=== PATIENT | male | born 1990 | race Caucasian/White ===

== ENCOUNTER 2019-04-26 19:29 | Emergency (ER) | payer BC, SELFPAY ==
[2019-04-26 19:44] VITALS: BP 131/76; PULSE 80; RESP 18; TEMP 36.7; O2SAT 99
--- NOTE | 2019-04-26 20:05 | ED_ITS ---
HPI - Skin/Abscess/Foreign Bdy General: Chief complaint: Skin/Abscess/Foreign Body Stated complaint: POISON TASIA Time Seen by Provider: 04/26/19 19:54 Source: patient Mode of arrival: ambulatory Limitations: no limitations History of Present Illness: HPI narrative: Patient was exposed to poison tasia on and Friday while [place] the city. Patient noticed rash starting on Friday to his lower abdomen and groin. Patient now has areas spreading on his neck and face. Patient appears well. Patient appears in no acute distress. Patient reports no previous episodes of poison tasia. Review of Systems General: Reports: 10 or more systems reviewed and unremarkable except in HPI and below Skin/Breast: Reports: rash and itching Physical Exam Const: COMMON NORMALS: no apparent distress and oriented x3 GENERAL APPEARANCE: cooperative HENMT: COMMON NORMALS: normocephalic, external ears normal, EAC's normal, TM's normal bilaterally and external nose normal HEAD & SCALP: normal to inspection and normocephalic FACE & SINUS: normal facial exam NOSE: external nose normal GENERAL EAR: hearing not grossly impaired EXTERNAL EAR: Yes external ears normal EXTERNAL AUDITORY CANAL: EAC's normal TYMPANIC MEMBRANE: TM's normal bilaterally MOUTH: oral and palatal mucosa normal THROAT: posterior oropharynx normal Eye: COMMON NORMALS: PERRL and EOMs intact bilaterally PUPIL: Yes PERRL Neck/C-Spine: COMMON NORMALS: full ROM and no lymphadenopathy Lymph: LYMPHATIC: no lymphedema noted Chest: COMMONS NORMALS: inspection of chest normal and palpation of chest normal Resp: COMMON NORMALS: normal respiratory effort and clear to auscultation bilaterally AUSCULTATION: clear to auscultation bilaterally Cardio: COMMON NORMALS: regular rate and regular rhythm RATE: regular rate RHYTHM: regular rhythm GI: COMMON NORMALS: normal to inspection, nondistended, normoactive bowel sounds and non-tender : COMMON NORMALS: Yes no CVA tenderness BLADDER/KIDNEY EXAM: Yes no CVA tenderness Back/Pelvis: COMMON NORMALS: no CVA tenderness and thoracic and lumbar spine normal to inspection Extremity: COMMON NORMALS: normal to inspection GENERAL: No edema Neuro: COMMON NORMALS: oriented x3, moves all extremities and no focal motor deficits Psych: COMMON NORMALS: mental status grossly normal and cooperative Skin: RASHES: rashes noted (patchy elevated rash to neck, groin, and lower abd) Course Vital Signs: Vital signs: Vital Signs Temperature 98.1 F 04/26/19 19:44 Pulse Rate 80 04/26/19 19:44 Respiratory Rate 18 04/26/19 19:44 Blood Pressure 131/76 04/26/19 19:44 Pulse Oximetry 99 04/26/19 19:44 MDM - Skin/Abscess/Foreign Bdy MDM Narrative: Medical decision making narrative: Patient comes in today for complaints of rash and itching. On exam have a patchy rash to the neck face and lower abdomen and groin area. Rashes elevated maculopapular type lesions in various patches. Differential diagnosis includes contact dermatitis, poison iv y, eczema. Reviewed exam recommended treatment for poison tasia. Patient was given 1 dose of Decadron and recommended to continue with calamine lotion and Benadryl. Patient and family both report understanding agreed to plan. Discharge Plan Discharge Patient Disposition: Home, Self-Care Condition: Stable Prescriptions: No Action No Known Home Medications RF: 0 Discharge Orders: Discharge Order (Routine); Ordered 04/26/19 Ordered By: Arsenio Ba Discharge Diet: Usual diet Discharge Activity: Resume usual activity Patient Instructions: Poison Tasia (ED) Activity Restrictions/Additional Instructions: Avoid over drying the skin Use, hydrocortisone cream, calamine, and benadryl as discussed. You may use Claritin or Zyrtec instead of Benadryl if it makes you to drowsy Drink plenty of water with medications Follow-up with primary care as needed for further treatment Coding Level of Care Code ED Sole Stapler Welt for [address] Exam Problem Focused
[2019-04-26] MEDS: dexamethasone 10 mg/mL INJ IM (20:34)
== END 2019-04-26 21:08 | disposition home or self-care (01) ==
LOC: ER 20:42
PROVIDERS: Emergency Provider Nurse Practitioner Family
DX: L23.7 Allergic contact dermatitis due to plants, except food (principal)
CPT/HCPCS: 96372; 99281; J1100

== ENCOUNTER 2021-03-06 00:15 | Emergency (ER) | payer BC, SELFPAY ==
--- NOTE | 2021-03-06 00:20 | ED_ITS ---
HPI - Back Pain/Injury General: Chief Complaint: Back Pain/Injury Stated Complaint: lower back pain Time Seen by Provider: 03/06/21 00:19 History of Present Illness: HPI Narrative: 31-year-old male patient comes in today with complaints of left flank pain. Patient reports pain starting this evening about 4 hours ago. Patient has taken 2 [place]'s, 1 dose of ondansetron, and 1 tamsulosin with no significant relief. Patient does have a history of kidney stone with the last one being in 2018. Patient appears in moderate to severe pain. Patient appears mildly unwell but not toxic. Review of Systems General: Reports: 10 or more systems reviewed and unremarkable except in HPI and below : Reports: flank pain Physical Exam Const: COMMON NORMALS: no acute distress and patient oriented x3 GENERAL APPEARANCE: cooperative HENMT: COMMON NORMALS: normocephalic HEAD & SCALP: normal to inspection and normocephalic MOUTH: Normal oral and palatal mucosa present Eye: GENERAL EYE: appearance normal, both eyes and all related structures Neck/C-Spine: COMMON NORMALS: full ROM Chest: COMMONS NORMALS: normal inspection of the chest Resp: COMMON NORMALS: normal respiratory effort EFFORT & INSPECTION: Yes able to speak in complete sentences Cardio: COMMON NORMALS: regular rate and regular rhythm RATE: regular rate RHYTHM: regular rhythm GI: COMMON NORMALS: non-tender : BLADDER/KIDNEY EXAM: Yes CVA tenderness (mild) on the left Back/Pelvis: COMMON NORMALS: thoracic and lumbar spine normal to inspection GENERAL BACK: Yes CVA tenderness (mild) Extremity: COMMON NORMALS: normal to inspection Neuro: COMMON NORMALS: patient oriented x3 and moves all extremities Psych: COMMON NORMALS: mental status grossly normal and cooperative Skin: COMMON NORMALS: no rashes or lesions noted GENERAL SKIN EXAM: no rashes or lesions noted Course Vital Signs: Vital signs: Vital Signs Temperature 97.6 F 03/06/21 00:22 Pulse Rate 77 03/06/21 00:22 Respiratory Rate 18 03/06/21 00:22 Blood Pressure 123/68 03/06/21 00:22 Pulse Oximetry 98 03/06/21 00:22 MDM - Back Pain/Injury MDM Narrative: Medical decision making narrative: Patient comes in today with complaints of left flank pain radiating into the groin. Patient has a history of renal calculi. On exam patient has some mild tenderness on percussion of the left CVA. Vital signs are normal. Abdomen soft nontender. Differential diagnosis includes pyelonephritis, urinary tract infection, renal calculi. Urine showed large amount of white blood cells. CBC and CMP were unremarkable. CT showed a distal ureter stone in the left side. Patient was given morphine with good control of pain. Patient will be continued on hydrocodone, ondansetron, and tamsulosin for further treatment. Case management was requested to assist patient with follow-up with Dr. Dodd. Patient was instructed to monitor for fever and return to the ER for uncontrolled pain or high fever. Patient reported understanding and agreed to plan. Lab Data: Labs: Lab Results 03/06/21 03/06/21 03/06/21 00:25 00:25 01:15 WBC 8.8 10^3/uL 10^3/ uL (4.0-10.0) RBC 5.07 10^6/uL 10^6 /uL (4.1-5.3) Hgb 14.9 g/dL g/dL (11.7-16.6) Hct 42.1 % % (42.0-52.0) MCV 83.0 fl fl (80-94) MCH 29.4 pg pg (28.0-34.0) MCHC 35.4 g/dL g/dL (30.0-36.0) RDW 12.7 % % (12.1-15.1) Plt Count 289 10^3/cmm 10^3 /cmm (130-400) MPV 9.5 fL fL (7.4-10.4) Neut % (Auto) 49.9 % % Lymph % (Auto) 37.5 % % [facility] % (Auto) 8.4 % % Eos % (Auto) 3.5 % % Baso % (Auto) 0.5 % % Neut # (Auto) 4.38 10^3/uL 10^3 /uL (1.8-7.7) Lymph # (Auto) 3.3 10^3/uL 10^3/ uL (0.8-4.8) [facility] # (Auto) 0.7 10^3/uL 10^3/ uL (0.2-0.9) Eos # (Auto) 0.3 10^3/uL 10^3/ uL (0.0-0.8) Baso # (Auto) 0.0 10^3/uL 10^3/ uL (0.0-0.1) Nucleated RBC % (a uto) 0 % % Nucleated RBCs # 0.0 /100WBC /100W BC Sodium 140 mmol/L mmol/L (136-145) Potassium 3.8 mmol/L mmol/L (3.5-5.1) Chloride 102 mmol/L mmol/L (98-107) Carbon Dioxide 25 mmol/L mmol/L (22-29) Anion Gap 16.8 (5-19) BUN 18 mg/dL mg/dL (6-20) Creatinine 1.2 mg/dL mg/dL (0.7-1.2) GFR Calculation 69.7 mL/min L mL/ min (90-130) Glucose 101 mg/dL mg/dL (65-115) Calculated Osmolal ity 292 mOsm/kg mOsm/ kg (285-295) Calcium 9.3 mg/dL mg/dL (8.5-10.5) Total Bilirubin 0.6 mg/dL mg/dL (0.15-1.2) AST 17 U/L U/L (0-40) ALT 22 U/L U/L (0-41) Alkaline Phosphata se 41 IU/L IU/L (40-130) Total Protein 7.9 g/dL g/dL (6.6-8.7) Albumin 4.7 g/dL g/dL (3.5-5.2) Globulin 3.2 g/dL g/dL (1.3-4.6) Urine Color Dark yellow (Yellow) Urine Appearance Hazy A (CLEAR) Urine pH 5 (5-7) Ur Specific Gravit y 1.020 (1.005-1.030) Urine Protein Neg (Negative) Urine Glucose (UA) Norm (Normal) Urine Ketones Negative (Negative) Urine Blood 3+ H (Negative) Urine Nitrate Negative (Negative) Urine Bilirubin Neg (Negative) Urine Urobilinogen Neg mg/dL mg/dL (Negative) Ur Leukocyte Selina ase Negative (Negative) Urine RBC >100 /hpf H /hpf (0-2) Urine WBC 0-4 /hpf H /hpf (0-5) Ur Squamous Epith Cells 0-4 /hpf H /hpf (0-5) Amorphous Sediment Not Reportable Urine Bacteria None /hpf /hpf (NONE) Discharge Plan Discharge Patient Disposition: Home Clinical Impression: Left ureteral calculus Condition: Stable Prescriptions: New hydrocodone-acetaminophen 5-325 mg tablet 1 tab PO Q6H PRN (Reason: pain (scale score 7-10)) Qty: 14 RF: 0 ondansetron 4 mg tablet,disintegrating 4 mg PO Q8H PRN (Reason: nausea and vomiting) Qty: 10 RF: 0 tamsulosin 0.4 mg capsule 0.4 mg PO DAILY Qty: 10 RF: 0 Discharge Orders: Discharge ED (Routine); Ordered 03/06/21 Ordered By: Arsenio Ba Discharge Diet: Usual diet Patient Instructions: Kidney Stones (ED), Opioid Safety Activity Restrictions/Additional Instructions: Home and rest. Activity as tolerated. Continue with routine medications as directed. Use prescriptions as prescribed. You will need to follow-up with urologist for further treatment. Monitor for high fever greater than 100.4 or uncontrolled pain. If any of these symptoms return to the ER. Case management should contact you for the follow-up appointment with Dr. Dodd. 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
[2021-03-06 00:22] VITALS: BP 123/68; PULSE 77; RESP 18; TEMP 36.4; O2SAT 98; BMI 31.1
--- NOTE | 2021-03-06 00:25 | CTR_ITS ---
PROCEDURE INFORMATION: Exam: CT Abdomen And Pelvis Without Contrast Exam date and time: 03/06/2021 12:25 AM Age: 31 years old Clinical indication: Abdominal pain; Flank; Left; Additional info: Left flank pain, renal stone TECHNIQUE: Imaging protocol: Computed tomography of the abdomen and pelvis without contrast. Radiation optimization: All CT scans at this facility use at least one of these dose optimization techniques: automated exposure control; mA and/or kV adjustment per patient size (includes targeted exams where dose is matched to clinical indication); or iterative reconstruction. COMPARISON: CT Abdomen/Pelvis Renal [id number] 03/05/2018 10:00 AM RADIATION DOSE METRICS: Total DLP (mGy-cm): 1928.8 FINDINGS: Liver: Normal. No mass. Gallbladder and bile ducts: Normal. No calcified stones. No ductal dilation. Pancreas: Normal. No ductal dilation. Spleen: Normal. No splenomegaly. Adrenal glands: Normal. No mass. Kidneys and ureters: 5 mm calcified stone in the distal left ureter just proximal to the UVJ. Mild severity left collecting system hydroureteronephrosis. Stomach and bowel: Unremarkable. No obstruction. No mucosal thickening. Appendix: No evidence of appendicitis. Intraperitoneal space: Unremarkable. No free air. No significant fluid collection. Vasculature: Unremarkable. No abdominal aortic aneurysm. Lymph nodes: Unremarkable. No enlarged lymph nodes. Urinary bladder: Unremarkable as visualized. Reproductive: Unremarkable as visualized. Bones/joints: Unremarkable. No acute fracture. Soft tissues: Unremarkable. CT/CT kidney stone [id number] IMPRESSION: Left side distal ureterolithiasis with obstructive uropathy changes. Radiation Dose CTDIVOL = (mGy): DLP = 1928.8 (mGy-cm)
[2021-03-06] MEDS: ondansetron 2 mg/ML SDV 2 mL 4 MG IVP (00:34)
[2021-03-06] MEDS: ketorolac 30 mg/mL INJ 15 MG IVP (00:34)
[2021-03-06] MEDS: morphine 4 mg/mL SDV 1 mL IVP ×2 (00:34→01:55)
[2021-03-06 00:54] LABS: Basophils % 0.5 %; Eosinophils # 0.3 10^3/uL (0.0-0.8); Eosinophils % 3.5 %; Hematocrit 42.1 % (42.0-52.0); Hemoglobin 14.9 g/dL (11.7-16.6); Lymphocytes # 3.3 10^3/uL (0.8-4.8); Lymphocytes % 37.5 %; Mean Corpuscular HGB Conc 35.4 g/dL (30.0-36.0); Mean Corpuscular Hemoglobin 29.4 pg (28.0-34.0); Mean Platelet Volume 9.5 fL (7.4-10.4); Monocytes # 0.7 10^3/uL (0.2-0.9); Monocytes % 8.4 %; Neutrophils # 4.38 10^3/uL (1.8-7.7); Neutrophils % 49.9 %; Nucleated Red Blood Cells % 0 %; Platelet Count 289 10^3/cmm (130-400); Red Blood Count 5.07 10^6/uL (4.1-5.3); Red Cell Distribution Width 12.7 % (12.1-15.1); White Blood Count 8.8 10^3/uL (4.0-10.0)
[2021-03-06 01:09] LABS: Alanine Aminotransferase 22 U/L (0-41); Albumin Level 4.7 g/dL (3.5-5.2); Alkaline Phosphatase 41 IU/L (40-130); Anion Gap 16.8 (5-19); Aspartate Amino Transferase 17 U/L (0-40); Blood Urea Nitrogen 18 mg/dL (6-20); Calcium 9.3 mg/dL (8.5-10.5); Carbon Dioxide 25 mmol/L (22-29); Chloride 102 mmol/L (98-107); Globulin 3.2 g/dL (1.3-4.6); Glomerular Filtration Rate 69.7 mL/min (90-130); Glucose 101 mg/dL (65-115); Osmolality Calculated 292 mOsm/kg (285-295); Potassium 3.8 mmol/L (3.5-5.1); Sodium 140 mmol/L (136-145); Total Bilirubin 0.6 mg/dL (0.15-1.2); Total Protein 7.9 g/dL (6.6-8.7)
[2021-03-06] MEDS: sodium chloride 0.9% 500 ML 999 ML IV (01:13)
[2021-03-06 01:45] LABS: Add Urine Microscopic? YES; Bilirubin Urine Neg (Negative); Blood Urine 3+ (Negative); Glucose Urine UA Norm (Normal); Ketones Urine Negative (Negative); Leukocyte Esterase Urine Negative (Negative); Nitrate Urine Negative (Negative); Protein Urine Neg (Negative); Urine Appearance Hazy (CLEAR); Urine Color Dark Yellow (Yellow); Urobilinogen Urine Neg (Negative); pH Urine 5 (5-7)
[2021-03-06 01:46] LABS: Add Urine Culture? Yes; RBC Urine >100 /hpf (0-2); Squamous Epithelial Cell Urine 0-4 /hpf (0-5); WBC Urine 0-4 /hpf (0-5)
[2021-03-06 01:59] VITALS: BP 117/57; PULSE 63; RESP 16; O2SAT 98
--- NOTE | 2021-03-06 11:46 | DCPLANNER ---
solutions manager had message to schedule a follow up for patient with Dr. Dodd. solutions manager emailed patients information to Simone Douglas and Yancy in the office of Dr. Dodd. Patients information will be printed and reviewed. Clinic will call patient with appointment information.
--- NOTE | 2021-03-07 08:09 | DCPLANNER ---
Patient has a follow up appointment scheduled for Friday, March 07, 2021 at 3:[address] Dodd. Clinic will call patient with appointment information.
--- NOTE | 2021-04-04 14:31 | DCPLANNER ---
Patient had a follow up appointment scheduled for 03.07.[address] Dodd - patient did attend appointment.
== END 2021-03-06 02:08 | disposition home or self-care (01) ==
PROVIDERS: Emergency Provider Nurse Practitioner Family
DX: N20.1 Calculus of ureter (principal)
CPT/HCPCS: 74176; 80053; 81001; 85025; 87086; 96374; 96375; 96376; 99284; J1885; J2270; J2405; J7040

== ENCOUNTER 2021-03-07 13:47 | Outpatient (CLI) | payer BC, SELFPAY ==
--- NOTE | 2021-03-07 13:59 | XR_ITS ---
WS: [id number] KUB, AP view, 03/07/2021 Clinical Data: URETERAL CALCULUS Comparison: KUB, 03/06/2018. Findings: No abnormal intraabdominal masses or calcifications are seen. There is no dilatated small bowel or ev idence of obstruction. There is a small calcification in the region of the left ureterovesical junction. XR/XR KUB [id number] Impression: Left UVJ calcification.
== END 2021-03-07 13:48 | disposition home or self-care (01) ==
LOC: RAD 13:49
PROVIDERS: PCP Nurse Practitioner Adult Health; Visit Provider Urology
DX: N20.1 Calculus of ureter (principal)
CPT/HCPCS: 74018

== ENCOUNTER 2021-03-14 07:13 | Outpatient (CLI) | payer BC, SELFPAY ==
--- NOTE | 2021-03-14 07:00 | XR_ITS ---
WS: [id number] Exam: XR KUB [id number] Date/Time of Exam: 03/14/2021 7:22 AM Reason For Exam: ureteral calculus Comparison 03/07/2021. Previously noted left pelvic calcification not definitely seen on today's study. No calcifications se en over the region of the kidneys. No bowel obstruction or free air. No sign of organ enlargement. Re gional bony structures appear normal. XR/XR KUB [id number] IMPRESSION: 1. No acute abdominal finding. 2. Previously noted small left pelvic calcification is difficult to identify on today's exam.
== END 2021-03-14 07:14 | disposition home or self-care (01) ==
PROVIDERS: PCP Nurse Practitioner Adult Health; Visit Provider Urology
DX: N20.1 Calculus of ureter (principal)
CPT/HCPCS: 74018; 81003; 82365; 88300

== ENCOUNTER → 2021-04-23 12:00 | Outpatient (BNVA) | payer BC, SELFPAY | PROVIDERS: PCP Nurse Practitioner Adult Health; Visit Provider Nurse Practitioner Family | DX: Z20.822 Contact with and (suspected) exposure to COVID-19 (principal); J06.9 Acute upper respiratory infection, unspecified | CPT/HCPCS: 87635 ==

== ENCOUNTER 2022-08-02 11:20 | Emergency (ER) | payer OTHER, SELFPAY ==
[2022-08-02 11:27] VITALS: BP 146/63; PULSE 84; RESP 16; TEMP 36.6; O2SAT 98; BMI 31.1
--- NOTE | 2022-08-02 11:35 | XR_ITS ---
WS: [id number] Exam: XR hand LT 2V [id number] Date/Time of Exam: 08/02/2022 11:38 AM Reason For Exam: laceration left index No fracture or dislocation noted. Soft tissue laceration of the index finger. No sign sign of foreign body. Joint structures are well-maintained. XR/XR hand LT 2V [id number] IMPRESSION: 1. Soft tissue injury of the index finger. 2. No fracture or other significant finding..
--- NOTE | 2022-08-02 11:39 | ED_ITS ---
HPI - Extremity Problem General: Chief complaint: Extremity Injury, Upper Stated complaint: finger injury Time Seen by Provider: 08/02/22 11:28 History of Present Illness: 32-year-old male presents emergency department chief complaint of a left index finger laceration. Patient reports that he was attempting to take off the cutting edge of his gastric bucket in which he ended up cutting his finger through his gloved hand he reports he is left-hand dominant. He reports it did not involve the nailbed. He reports full range of motion of the finger reports moderate pain with motion but no numbness or tingling distally patient reports minimal blood he does not recall whether or not his tetanus shot is up-to-date. Patient presents to the ER for further assessment management. Associated symptoms: Deny chest pain or fever(s) Review of Systems General: Reports: 10 or more systems reviewed and unremarkable except in HPI and below Const: Denies: fever(s), chills, fatigue or malaise Eyes: Denies: change in vision or blurry vision Card: Denies: chest pain or palpitations Resp: Denies: dyspnea or productive cough GI: Denies: abdominal pain, nausea or vomiting : Denies: flank pain Musc: Denies: extremity pain or extremity swelling Skin/Breast: Reports: skin tenderness, skin swelling, changes in skin color and other (Laceration to left index finger) Neuro: Denies: headache(s) Psych: Denies: anxiety or depression Daniel/Lymph: Denies: easy bleeding All/Imm: Denies: urticaria, throat swelling or facial swelling [facility] ED PFSH: Medical History Urolithiasis Multi stone former with small stone spontaneously passed in 2018 and then again March 2021. No additional stones. Family History Other Cancer Diabetes Social History Smoking and tobacco status: never smoked Alcohol intake: current Alcohol intake frequency: holidays/special occasions only Marital status: Current occupational status: employed Physical Exam Const: COMMON NORMALS: no acute distress, patient oriented x3 and healthy appearing HENMT: COMMON NORMALS: normocephalic and atraumatic HEAD & SCALP: normocephalic and atraumatic Eye: COMMON NORMALS: Equal, round and reactive pupils present and EOMs intact bilaterally PUPIL: Yes Equal, round and reactive pupils present Neck/C-Spine: COMMON NORMALS: full ROM, supple and no JVD Lymph: LYMPHATIC: no lymphadenopathy noted Chest: COMMONS NORMALS: normal inspection of the chest and normal palpation of entire chest wall Resp: COMMON NORMALS: normal respiratory effort, No retractions and clear to auscultation bilaterally EFFORT & INSPECTION: Yes able to speak in complete sentences and Yes symmetric chest movement AUSCULTATION: clear to auscultation bilaterally Cardio: COMMON NORMALS: no JVD, regular rate and regular rhythm RATE: regular rate RHYTHM: regular rhythm GI: COMMON NORMALS: Normal to inspection, nondistended, normoactive bowel sounds present, Soft to palpation and non-tender INSPECTION: Yes normal to inspection PALPATION: Yes Soft to palpation : COMMON NORMALS: Yes no CVA tenderness BLADDER/KIDNEY EXAM: Yes no CVA tenderness Back/Pelvis: COMMON NORMALS: no CVA tenderness Extremity: COMMON NORMALS: normal to inspection and full ROM Neuro: COMMON NORMALS: patient oriented x3, CN's II-XII intact bilaterally, moves all extremities and no focal motor deficits Psych: COMMON NORMALS: mental status grossly normal, Normal thought process present, cooperative and normal affect THOUGHT PROCESS: Normal thought process present Skin: NARRATIVE SKIN EXAM: 3 cm laceration appreciated to the left index finger not involving the nailbed into the deep cutaneous tissue partial avulsion minimal bleeding nonpulsatile appreciated no foreign bodies noted full range of motion appreciated neurovascularly intact distally Course ED course: Patient underwent laceration repair as noted above tolerated quite well no difficulties were noted patient is placed into aluminum foam splint for comfort started on some Keflex for infection prophylaxis advised further follow-up with his work comp doctor in 1 week for suture removal which patient advised return the interim if any of the symptoms persist or worse. Vital Signs: Vital signs: Vital Signs Temperature 97.8 F 08/02/22 11:27 Pulse Rate 82 08/02/22 11:50 Respiratory Rate 16 08/02/22 11:50 Blood Pressure 119/62 08/02/22 11:50 Pulse Oximetry 97 08/02/22 11:50 Oxygen Delivery Me thod Room Air 08/02/22 11:50 MDM - Extremity (Nontraumatic) Medical Decision Making Patient undergo laceration repair as noted above x-ray imaging of the hand will be obtained prior to this to further rule out underlying bone injury and or retained foreign body we will continue to follow patient we provided a tetanus shot if there is concerns whether or not he is is currently up-to-date Lab Data Radiology Impressions Hand X-Ray 08/02/22 11:35 IMPRESSION: 1. Soft tissue injury of the index finger. 2. No fracture or other significant finding.. Discharge Plan Discharge Patient Disposition: Home Clinical Impression: Finger laceration Condition: Stable Prescriptions: New cephalexin 500 mg capsule 500 mg PO TID 7 Days Qty: 21 0RF ketorolac 10 mg tablet 10 mg PO Q8H PRN (Reason: pain) Qty: 10 0RF No Action Dolly 180 mg Tablet 180 mg PO DAILY Discharge Orders: Discharge ED (Routine); Ordered 08/02/22 Ordered By: Randell Hernandez Referrals: Tenisha Batres APRN [Primary Care Provider] - 7-10 days (Or please follow- up with your work comp doctor) Discharge Activity: Limit activity as instructed Patient Instructions: Care For Your Stitches (ED), Care For Your Stitches (DC), Finger Laceration (ED), Opioid Safety, Pain Management Activity Restrictions/Additional Instructions: Please follow-up with your primary care doctor work comp doctor next 7 to 10 days for suture removal please keep the wound clean dry intact and covered until completely healed please use the splint for comfort over the next 3 to 5 days. Please take medication as prescribed and please return the interim if any of your symptoms persist or worse. 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
[2022-08-02 11:50] VITALS: BP 119/62; PULSE 82; RESP 16; O2SAT 97
[2022-08-02] MEDS: tetanus-dipt-pertussis 0.5 mL SDV IM (11:52)
== END 2022-08-02 13:00 | disposition home or self-care (01) ==
PROVIDERS: Emergency Provider Emergency Medicine; PCP Nurse Practitioner Adult Health
DX: S61.211A Laceration without foreign body of left index finger without damage to nail, initial encounter (principal); W26.9XXA Contact with unspecified sharp object(s), initial encounter; Z23 Encounter for immunization
CPT/HCPCS: 12002; 73120; 90471; 90715; 99283